=== PATIENT | male | born 1950 | race Caucasian/White ===

== ENCOUNTER 2019-06-05 11:30 | Emergency (ER) | payer BC, SELFPAY ==
[2019-06-05 11:33] VITALS: BP 175/98; PULSE 54; RESP 16; TEMP 36.6; BMI 36.1
--- NOTE | 2019-06-05 11:57 | EKG12_ITS ---
Test Reason : Blood Pressure : / mmHG Vent. Rate : 047 BPM Atrial Rate : 047 BPM P-R Int : 172 ms QRS Dur : 092 ms QT Int : 474 ms P-R-T Axes : 033 -01 008 degrees QTc Int : 419 ms Sinus bradycardia Minimal voltage criteria for LVH, may be normal variant Borderline ECG Confirmed by SUMIT PORTER, JOSE F ([id number]), production editor KEMI CACERES ([id number]) on 06/07/2019 10:03:34 AM Referred By: SADI/YIFAN Confirmed By:PANCHITO ARANA MD
--- NOTE | 2019-06-05 11:57 | CT_ITS ---
STUDY: CTA HEAD AND NECK WITH CONTRAST REASON FOR EXAM: Male, 68 years old. RIGHT FACIAL DROOP X2 DAYS RADIATION DOSAGE (If Supplied By Facility): CTDIvol = ( 35.37 ) mGy, DLP = ( 1645.03 ) mGycm TECHNIQUE: CT angiography was performed with a multi-detector CT scanner. Data acquisition was obtained from the skull base through the vertex following intravenous administration of 100cc [id number]. MIP images were reconstructed from the axial data set. Post-processing of the angiographic images was performed, with multiplanar reformation and 3D reconstruction. Individualized dose optimization techniques were used for this CT. COMPARISON: No relevant priors. FINDINGS: Normal bilateral petrous carotid arteries. There is calcified plaque formation of the right cavernous carotid artery, without a cross-sectional luminal stenosis. There is calcified plaque formation of the left cavernous carotid artery, without a cross-sectional luminal stenosis. Normal right A1 segments of the anterior cerebral artery. Normal left A1 segments of the anterior cerebral artery. Normal intact anterior communicating artery (ACOM). Normal bilateral A2 segments of the anterior cerebral arteries. Normal right M1 and M2 segments of the middle cerebral arteries, with a normal M1 bifurcation. Normal left M1 and M2 segments of the middle cerebral arteries, with a normal M1 bifurcation. There is a persistent origin of the right posterior cerebral artery with absence of the posterior communicating artery (PCOM). There is a persistent origin of the left posterior cerebral artery with absence of the posterior communicating artery (PCOM). Normal bilateral vertebral arteries. Normal basilar artery with a normal basilar bifurcation. The visualized bilateral superior cerebellar (SCA) arteries are normal. Normal bilateral P1, P2 and visualized P3 segments of the posterior cerebral arteries. There is no demonstrated aneurysm of the [place]. There is no demonstrated abnormality of the visualized brain. AORTIC ARCH: Normal visualized aortic arch. Normal origins of the brachiocephalic, left common carotid, and left subclavian arteries. RIGHT CAROTID ARTERIES: Normal right common carotid artery (CCA). Normal right common carotid bulb. There is mild atherosclerotic plaque formation of the origin of the right internal carotid artery with less than 50% cross sectional diameter stenosis. Normal visualized cervical portion of the right internal carotid artery. Normal origin of the right external carotid artery (ECA). LEFT CAROTID ARTERIES: Normal left common carotid artery (CCA). Normal left common carotid bulb. There is mild atherosclerotic plaque formation of the origin of the left internal carotid artery with less than 50% cross sectional diameter stenosis. Normal visualized cervical portion of the left internal carotid artery. Normal origin of the left external carotid artery (ECA). VERTEBRAL ARTERIES: Normal bilateral vertebral arteries. CT/CTA Head AND Neck W/ Contrast IMPRESSION: Nonstenotic atherosclerotic plaque at the origin of the right and left internal carotid arteries. Electronically Signed: Usman Maurer, at 13:35 EST , Service support ,
--- NOTE | 2019-06-05 12:01 | ED.DCSUM_ITS ---
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 Said he woke up on Monday later that morning he noticed he had a right facial droop. He had trouble spitting water out. He denies any visual change he denies any headache. He denies any weakness or numbness to his arms or legs. States he is never had anything like this before. He denies any head trauma. Physical Examination: Older male no acute distress vital signs stable afebrile. HEENT exam is an obvious right-sided facial droop. He is able to wrinkle his forehead. Pupils round reactive light. He can close his eyes he has trouble opening his right eye completely. And he can cannot close it tightly. He is obviously droop of his right corner of his mouth. Neck nontender. Lungs clear to auscultation. Heart regular rhythm no murmur. Rate about 55-60. Abdomen soft and nontender. Normal bowel sounds. Patient is moving all 4 extremities. Neurovascular intact. Normal motor strength and sensation. Neurologically is a right-sided facial droop. He has sensation in the right side. His ocular motions are intact. He has normal speech. He has normal fingertip to nose. Dorsi plantarflexion intact. His NIH score is a 1-2 for right facial droop only. Test Results: CBC normal white count of 7. Hemoglobin 12. Chemistries unremarkable creatinine 1.67 with no old labs available for comparison. Gap of 3. EKG sinus bradycardia rate of 47 but no acute signs of [place] or ischemia. CTA head neck shows nonstenotic plaques of both the right and left internal carotids but again no blockage. No acute stroke or bleed. Emergency Department Course and Treatment: Clinically I think this is Valentine's palsy. It started yesterday morning. He is out of the window for TPA. He will be worked up with a CTA of his head neck with and without contrast screening labs and an EKG. He has no other neurological findings other than the right side of his face. Edinson exam at 1345 he is doing well. There is been no change. History and exam are consistent with right facial droop from a Valentine's palsy. Treatment Plan: Prednisone daily. Follow-up with his primary care physician return if worsening neurologic symptoms such as weakness in his arms or legs or speech difficulty. Follow-up with his doctor when he is back from [place]. Disposition: Discharge Impression: Right-sided Valentine's palsy History of hypertension and CAD with stents This note was generated with [employer] dictation software. It may contain incorrect words, spelling, and punctuation that were not noted in review of the chart prior to signing ED Disposition - Plan for ED Patient: Referrals: [facility],Out of [Primary Care Provider] -
--- NOTE | 2019-06-05 12:03 | NURSING ---
NO OLD EKGS
[2019-06-05] MEDS: 0.9% Normal Saline 1,000 ML 999 ML IV (12:34)
[2019-06-05 12:38] VITALS: BMI 36.1
[2019-06-05 12:42] LABS: Absolute Lymphocyte Count 2.38 X10^3/uL (0.83-4.51); Absolute Neutrophil Count 4.2 X10^3/uL (2.0-7.7); Basophil# 0.05 X10^3/uL; Basophil% 0.7 % (0-1); Eosinophils% 3.9 % (0-5); Hematocrit 39.3 % (40-54); Hemoglobin 12.9 g/dL (13.0-16.5); Lymphocyte # 2.38 X10^3/ul (4.0); Lymphocyte % 31.1 % (19-41); Mean Corp Hgb Conc 32.8 g/dL (32-36); Mean Corpuscular Hgb 29.4 pg (27.0-32.0); Mean Corpuscular Volume 89.5 fL (80-94); Mean Platelet Vol. 11.7 fl (6.2-12.0); Monocyte% 9.2 % (0-10); NRBC Flagged by Analyzer 0 % (0-5); Neutrophil # 4.21 X10^3/uL (2.7-7.7); Platelet Count 223 K/mm3 (150-450); RBC Distribution Width CV 13.3 % (11.6-14.6); RBC Distribution Width SD 43.6 fl (35.1-43.9); Red Blood Count 4.39 M/mm3 (4.6-6.2); White Blood Count 7.7 K/mm3 (4.4-11.0)
[2019-06-05 12:53] LABS: Anion Gap 3 (5-15); BUN 17 mg/dL (7-18); BUN/Creat Ratio 10.2 RATIO (10-20); Calcium,Total 8.5 mg/dL (8.5-10.1); Chloride 112 mmol/L (98-107); Creatinine, Serum 1.67 mg/dL (0.70-1.30); EST Glomerular Filtration Rate 44 mL/min (>60); Est Glom Filt Rate - Afr Amer 53 mL/min (>60); Estimated Creatinine Clearance 49.17 ml/min; Glucose 94 mg/dL (74-106); Potassium 4.2 mmol/L (3.5-5.1); Sodium Level 143 mmol/L (136-145)
--- NOTE | 2019-06-05 13:47 | ED.DEP ---
ED Disposition - Plan for ED Patient: Disposition: Home or Assisted Living Instructions: Valentine's Palsy Prescriptions: Prednisone [Deltasone] 40 mg PO DAILY 7 Days tab Prescription Printed Referrals: [facility],Out of [Primary Care Provider] - 1 Week if not improving Additional Instructions: This appears to be due to a Valentine's palsy which is paralysis of the right facial nerve. Most of the time this comes back and your face gets back to normal. It was started on a steroid prednisone for 1 week. Follow-up with your primary care physician when you get back to [place]. Return to the closest emergency department if you have worsening symptoms such as trouble moving your arms or legs. Tape your right eye closed at night until it gets back to normal. Distal prevent it from getting dried out or you getting an ulcer. Use artificial tears during the day to prevent it from getting dried out.
[2019-06-05] MEDS: predniSONE 20 MG Tablet 40 MG PO (14:01)
[2019-06-05 14:07] VITALS: BP 177/97; PULSE 50; RESP 18; O2SAT 99
== END 2019-06-05 14:08 | disposition home or self-care (01) ==
PROVIDERS: Emergency Provider Emergency Medicine
DX: G51.0 Bell's palsy (principal); I25.10 Atherosclerotic heart disease of native coronary artery without angina pectoris; I10 Essential (primary) hypertension; R00.1 Bradycardia, unspecified; Z95.5 Presence of coronary angioplasty implant and graft; Z92.3 Personal history of irradiation
CPT/HCPCS: 70496; 70498; 80048; 85025; 93005; 96360; 96361; 99284; J7030; Q9967; A4216